=== PATIENT | female | born 1945 | race Caucasian/White ===

== ENCOUNTER 2017-10-25 18:58 | Inpatient (IN) | payer OTHER ==
[~2017-10-25] VITALS: Ht 156.2 cm; Wt 54.0 kg
[~2017-10-25 18:58] MED LIST: DOCUSATE SODIU100 MG PO; ENDOCET 5-3251 EACH PO; FENOFIBRATE54 M1 PO; GLIPIZIDE XL5 MG PO; GLIPIZIDE5 MG PO; GLUCOPHAGE1000 MG PO; HYDROCHLOROTHIA25 MG PO; LEVEMIR100 UNIT/2 SC; LIPITOR40 MG PO; LISINOPRIL10 MG PO; LISINOPRIL30 MG PO; MELOXICAM7.5 MG PO; METFORMIN HCL500 MG PO; NAPROSYN500 MG PO; NovoLOG Mix 70/30 Vi SC; PRAVASTATIN SOD20 MG PO; TYLENOL REGULA325 MG PO; XARELTO1 EACH PO; ZESTRIL,PRINIVI40 MG PO
[2017-10-25 20:47] LABS: BASOPHIL (%) 0.3 % (0-1); EOSINOPHIL (%) 0.2 % (0-5); HEMATOCRIT 32.3 % (36.0-46.0); HEMOGLOBIN 10.5 G/DL (11.9-15.5); IMMATURE GRANULOCYTE (%) 0.5 % (0.0-0.7); LYMPHOCYTE (%) 23.6 % (15-42); LYMPHOCYTE COUNT 3.1 K/uL (1.0-2.8); MCH 27.9 PG (29.0-34.0); MCHC 32.5 G/DL (30.0-36.0); MCV 85.7 FL (83-99); MONOCYTE (%) 4.2 % (3-12); MONOCYTE COUNT 0.6 K/uL (0-0.8); NEUTROPHIL (%) 71.2 % (45-76); NEUTROPHIL COUNT 9.5 K/uL (1.8-6.4); PLATELET COUNT 450 K/uL (156-360); RBC DIS.WIDTH-CV 14.3 % (11.8-14.6); RBC DIS.WIDTH-SD 44.8 % (39-53); RED BLOOD COUNT 3.77 M/uL (3.80-5.20); WHITE BLOOD COUNT 13.3 K/uL (4.1-10.2)
[2017-10-25 21:03] LABS: CHLORIDE 107 mEq/L (99-109); POTASSIUM 2.9 mEq/L (3.7-5.4); SODIUM 140 mEq/L (136-147)
[2017-10-25 21:05] LABS: GLUCOSE 132 mg/dL (70-99)
[2017-10-25 21:09] LABS: CREATININE 0.6 mg/dL (0.6-1.3); GFR ESTIMATE (CALCULATED) > 59 mL/min/
[2017-10-25 21:10] LABS: UREA NITROGEN (BUN) 23 mg/dL (9-23)
[2017-10-25 23:18] LABS: ALBUMIN 3.4 g/dL (3.2-4.8)
[2017-10-25 23:21] LABS: PTT 31.5 SEC (25-37); TOTAL PROTEIN 7.2 g/dL (6.4-8.3)
[2017-10-25 23:23] LABS: TOTAL BILIRUBIN 0.3 mg/dL (0.0-1.0)
[2017-10-25 23:24] LABS: ALKALINE PHOSPHATASE 76 IU/L (3-129)
[2017-10-25 23:26] LABS: AST (GOT) 68 IU/L (2-34); DIRECT BILIRUBIN 0.2 mg/dL (0.0-0.3)
[2017-10-25 23:27] LABS: ALT (GPT) 49 IU/L (3-49); LIPASE 15 U/L (1.0-51.0)
[2017-10-26] VITALS (7 sets, daily range): BP systolic 135–187; BP diastolic 63–81
[2017-10-26 07:16] LABS: HEMATOCRIT 28.2 % (36.0-46.0); HEMOGLOBIN 8.6 G/DL (11.9-15.5); RED BLOOD COUNT 3.18 M/uL (3.80-5.20); WHITE BLOOD COUNT 11.2 K/uL (4.1-10.2)
[2017-10-26 07:17] LABS: BASOPHIL (%) 0.3 % (0-1); EOSINOPHIL (%) 0.4 % (0-5); IMMATURE GRANULOCYTE (%) 0.4 % (0.0-0.7); LYMPHOCYTE (%) 23.6 % (15-42); LYMPHOCYTE COUNT 2.7 K/uL (1.0-2.8); MCHC 30.5 G/DL (30.0-36.0); MCV 88.7 FL (83-99); MONOCYTE (%) 3.8 % (3-12); MONOCYTE COUNT 0.4 K/uL (0-0.8); NEUTROPHIL (%) 71.5 % (45-76); PLATELET COUNT 406 K/uL (156-360); RBC DIS.WIDTH-CV 14.4 % (11.8-14.6); RBC DIS.WIDTH-SD 46.6 % (39-53)
[2017-10-26 07:42] LABS: CHLORIDE 110 MEQ/L (99-109); CREATININE 0.3 MG/DL (0.6-1.3); GFR ESTIMATE (CALCULATED) > 59 mL/min/; GLUCOSE 129 mg/dL (70-99); HDL CHOLESTEROL 16 MG/DL (Desirable>=50); LDL CHOLESTEROL 28 mg/dL (Desirable<100); NON-HDL CHOLESTEROL 52 mg/dL (Desirable<160); POTASSIUM 3.1 MEQ/L (3.7-5.4); SODIUM 138 MEQ/L (136-147); TOTAL CHOLESTEROL 68 mg/dL (Desirable<200); TRIGLYCERIDES 118 MG/DL (Normal: <150); UREA NITROGEN (BUN) 17 mg/dL (9-23)
[2017-10-27 04:33] VITALS: BP 175/75
[2017-10-27 06:50] LABS: BASOPHIL (%) 0.2 % (0-1); EOSINOPHIL (%) 0.4 % (0-5); EOSINOPHIL COUNT 0.1 K/uL (0-0.3); HEMATOCRIT 25.8 % (36.0-46.0); IMMATURE GRANULOCYTE (%) 0.5 % (0.0-0.7); LYMPHOCYTE COUNT 2.6 K/uL (1.0-2.8); MCH 26.9 PG (29.0-34.0); MCV 86.9 FL (83-99); MONOCYTE (%) 4.7 % (3-12); MONOCYTE COUNT 0.6 K/uL (0-0.8); NEUTROPHIL (%) 73.2 % (45-76); PLATELET COUNT 385 K/uL (156-360); RBC DIS.WIDTH-CV 14.4 % (11.8-14.6); RBC DIS.WIDTH-SD 45.4 % (39-53); RED BLOOD COUNT 2.97 M/uL (3.80-5.20); WHITE BLOOD COUNT 12.3 K/uL (4.1-10.2)
[2017-10-27 07:21] LABS: CHLORIDE 112 MEQ/L (99-109); CREATININE 0.4 MG/DL (0.6-1.3); GFR ESTIMATE (CALCULATED) > 59 mL/min/; GLUCOSE 131 mg/dL (70-99); SODIUM 140 MEQ/L (136-147); UREA NITROGEN (BUN) 15 mg/dL (9-23)
[2017-10-27 07:26] LABS: POTASSIUM 3.9 MEQ/L (3.7-5.4)
[2017-10-27 08:00] VITALS: BP 179/79
[2017-10-27 12:45] VITALS: BP 150/72
[2017-10-27 15:32] LABS: HEMOGLOBIN A1c (GLYCOHEMOGLOB) 7.5 % (Below 5.7)
[2017-10-27 16:00] VITALS: BP 124/57
[2017-10-27 19:28] VITALS: BP 113/57
[2017-10-27 23:36] VITALS: BP 121/62
[2017-10-28 04:06] VITALS: BP 129/60
[2017-10-28 06:24] LABS: HEMATOCRIT 25.1 % (36.0-46.0); HEMOGLOBIN 7.9 G/DL (11.9-15.5); MCH 27.3 PG (29.0-34.0); MCHC 31.5 G/DL (30.0-36.0); MCV 86.9 FL (83-99); PLATELET COUNT 319 K/uL (156-360); RBC DIS.WIDTH-CV 14.4 % (11.8-14.6); RED BLOOD COUNT 2.89 M/uL (3.80-5.20); WHITE BLOOD COUNT 9.6 K/uL (4.1-10.2)
[2017-10-28 06:58] LABS: CHLORIDE 107 MEQ/L (99-109); CREATININE 0.4 MG/DL (0.6-1.3); GFR ESTIMATE (CALCULATED) > 59 mL/min/; GLUCOSE 110 mg/dL (70-99); POTASSIUM 3.5 MEQ/L (3.7-5.4); SODIUM 137 MEQ/L (136-147); UREA NITROGEN (BUN) 12 mg/dL (9-23)
[2017-10-28 08:01] VITALS: BP 159/71
[2017-10-28 12:07] VITALS: BP 136/63
[2017-10-28 16:02] VITALS: BP 148/68
[2017-10-28 19:43] VITALS: BP 119/63
[2017-10-28 23:00] VITALS: BP 123/60
[2017-10-29 03:27] VITALS: BP 115/58
[2017-10-29 06:45] LABS: HEMATOCRIT 22.9 % (36.0-46.0); MCH 26.4 PG (29.0-34.0); MCHC 30.6 G/DL (30.0-36.0); MCV 86.4 FL (83-99); PLATELET COUNT 356 K/uL (156-360); RBC DIS.WIDTH-CV 14.3 % (11.8-14.6); RBC DIS.WIDTH-SD 44.5 % (39-53); RED BLOOD COUNT 2.65 M/uL (3.80-5.20); WHITE BLOOD COUNT 8.2 K/uL (4.1-10.2)
[2017-10-29 07:09] LABS: CHLORIDE 109 MEQ/L (99-109); CREATININE 0.3 MG/DL (0.6-1.3); GFR ESTIMATE (CALCULATED) > 59 mL/min/; GLUCOSE 93 mg/dL (70-99); POTASSIUM 3.6 MEQ/L (3.7-5.4); SODIUM 141 MEQ/L (136-147); UREA NITROGEN (BUN) 8 mg/dL (9-23)
[2017-10-29 08:00] VITALS: BP 172/85
[2017-10-29 11:37] VITALS: BP 131/63
[2017-10-29 12:36] LABS: HEMATOCRIT 24.2 % (36.0-46.0); HEMOGLOBIN 7.7 G/DL (11.9-15.5); MCH 27.2 PG (29.0-34.0); MCHC 31.8 G/DL (30.0-36.0); MCV 85.5 FL (83-99); PLATELET COUNT 365 K/uL (156-360); RBC DIS.WIDTH-CV 14.4 % (11.8-14.6); RBC DIS.WIDTH-SD 45.2 % (39-53); RED BLOOD COUNT 2.83 M/uL (3.80-5.20); WHITE BLOOD COUNT 7.8 K/uL (4.1-10.2)
[2017-10-29 15:20] VITALS: BP 175/77
[2017-10-29 19:52] VITALS: BP 142/65
[2017-10-30 00:17] VITALS: BP 136/64
[2017-10-30 07:05] VITALS: BP 180/77
[2017-10-30 07:20] VITALS: BP 162/73
[2017-10-30 08:53] LABS: HEMATOCRIT 26.7 % (36.0-46.0); HEMOGLOBIN 8.4 G/DL (11.9-15.5); MCH 27.1 PG (29.0-34.0); MCHC 31.5 G/DL (30.0-36.0); MCV 86.1 FL (83-99); PLATELET COUNT 418 K/uL (156-360); RBC DIS.WIDTH-CV 14.4 % (11.8-14.6); WHITE BLOOD COUNT 10.2 K/uL (4.1-10.2)
[2017-10-30 11:41] VITALS: BP 143/70
[2017-10-30 15:25] VITALS: BP 143/65
[2017-10-30 23:27] VITALS: BP 137/60
[2017-10-31 06:55] VITALS: BP 170/85
[2017-10-31 16:00] VITALS: BP 170/80
[2017-11-01 07:15] VITALS: BP 149/70
[2017-11-01 17:08] VITALS: BP 125/81
[2017-11-01 23:52] VITALS: BP 128/78
[2017-11-02] VITALS (7 sets, daily range): BP systolic 108–170; BP diastolic 52–77
[2017-11-02 06:10] LABS: HEMATOCRIT 24.4 % (36.0-46.0); HEMOGLOBIN 7.7 G/DL (11.9-15.5); MCH 27.3 PG (29.0-34.0); MCHC 31.6 G/DL (30.0-36.0); MCV 86.5 FL (83-99); PLATELET COUNT 484 K/uL (156-360); RBC DIS.WIDTH-CV 14.5 % (11.8-14.6); RBC DIS.WIDTH-SD 45.6 % (39-53); RED BLOOD COUNT 2.82 M/uL (3.80-5.20); WHITE BLOOD COUNT 9.5 K/uL (4.1-10.2)
[2017-11-02 06:43] LABS: CHLORIDE 102 MEQ/L (99-109); CREATININE 0.3 MG/DL (0.6-1.3); GFR ESTIMATE (CALCULATED) > 59 mL/min/; GLUCOSE 93 mg/dL (70-99); MAGNESIUM 2.1 mg/dl (1.3-2.7); POTASSIUM 4.3 MEQ/L (3.7-5.4); SODIUM 139 MEQ/L (136-147)
[2017-11-02 06:44] LABS: UREA NITROGEN (BUN) 25 mg/dL (9-23)
[2017-11-03 08:19] VITALS: BP 177/83
[2017-11-03 09:00] LABS: HEMATOCRIT 30.9 % (36.0-46.0); HEMOGLOBIN 9.7 G/DL (11.9-15.5); MCH 27.4 PG (29.0-34.0); MCHC 31.4 G/DL (30.0-36.0); MCV 87.3 FL (83-99); PLATELET COUNT 570 K/uL (156-360); RBC DIS.WIDTH-CV 14.4 % (11.8-14.6); RBC DIS.WIDTH-SD 45.7 % (39-53); RED BLOOD COUNT 3.54 M/uL (3.80-5.20); WHITE BLOOD COUNT 10.5 K/uL (4.1-10.2)
[2017-11-03] MEDS ORDERED: OXYCODONE-APAP1 EACH PO (11:47)
[2017-11-03 13:19] VITALS: BP 121/58
[2017-11-03 16:00] VITALS: BP 117/58
[2017-11-03] MEDS ORDERED: BISACODYL5 MG PO (16:05)
[2017-11-03] MEDS ORDERED: GLIPIZIDE5 MG PO (16:05)
[2017-11-03] MEDS ORDERED: LISINOPRIL20 MG PO (16:05)
[2017-11-03] MEDS ORDERED: TYLENOL REGULA325 MG PO (16:05)
[2017-11-03] MEDS ORDERED: FERROUS SULFAT325 MG PO (16:05)
[2017-11-03] MEDS ORDERED: METFORMIN HCL500 MG PO (16:05)
[2017-11-03] MEDS ORDERED: NIFEDIPINE10 MG PO (16:05)
[2017-11-03] MEDS ORDERED: LOVENOX40 MG/0.4 SC (16:05)
== END 2017-11-03 18:25 | DRG 617 ==
LOC: EME 18:58 → 2EAST 10-26 01:27 → EDOF 10-26 01:27 → ENRESERV 10-26 01:30 → 2EAST 10-26 02:59
PROVIDERS: Hospitalist; Internal Medicine; Internal Medicine Nephrology; Physician Assistant; Student in an Organized Health Care Education/Training Program; Surgery
PROC: 0Y6H0Z1 Detachment at Right Lower Leg, High, Open Approach (ICD-10-PCS; principal; 2017-10-27)
DX: E11.69 Type 2 diabetes mellitus with other specified complication (principal); E11.52 Type 2 diabetes mellitus with diabetic peripheral angiopathy with gangrene; M86.171 Other acute osteomyelitis, right ankle and foot; I96 Gangrene, not elsewhere classified; G82.20 Paraplegia, unspecified; L03.115 Cellulitis of right lower limb; I10 Essential (primary) hypertension; K59.03 Drug induced constipation; Z91.14 Patient's other noncompliance with medication regimen; B91 Sequelae of poliomyelitis; E87.6 Hypokalemia; E78.5 Hyperlipidemia, unspecified; D64.9 Anemia, unspecified; G54.6 Phantom limb syndrome with pain; L89.320 Pressure ulcer of left buttock, unstageable; L89.310 Pressure ulcer of right buttock, unstageable; L89.312 Pressure ulcer of right buttock, stage 2; M85.80 Other specified disorders of bone density and structure, unspecified site; Z88.0 Allergy status to penicillin; F17.210 Nicotine dependence, cigarettes, uncomplicated; Z79.84 Long term (current) use of oral hypoglycemic drugs; Z86.711 Personal history of pulmonary embolism; Z86.718 Personal history of other venous thrombosis and embolism; Z99.3 Dependence on wheelchair; Z91.19 Patient's noncompliance with other medical treatment and regimen; Z82.49 Family history of ischemic heart disease and other diseases of the circulatory system
CPT/HCPCS: 71046; 73630; 80048; 80061; 80076; 81003; 82948; 83036; 83605; 83690; 83735; 85025; 85027; 85610; 85730; 86850; 86900; 86901; 86920; 87040; 88307; 88311; 93970; 97530 GO; 97530 GP; 99281; 99285; J0330; J0360; J0690; J0692; J1170; J1644; J1650; J1815; J2270; J2405; J3010; J3370; J3480; J7030; J7050; J7120; P9016; S0030